=== PATIENT | female | born 1935 | race Caucasian/White ===

== ENCOUNTER → 2024-01-29 11:45 | Outpatient (REF) | payer OTHER, SELFPAY ==
[2024-01-29 14:08] LABS: ALT (SGPT) 13 U/L (0-35); AST (SGOT) 24 U/L (14-36); Alkaline Phosphatase 71 U/L (38-126); Blood Urea Nitrogen 13 mg/dl (7-17); Calcium 9.1 mg/dl (8.4-10.2); Carbon Dioxide 27 mmol/L (22-30); Chloride 105 mmol/L (98-107); Glucose 108 mg/dl (70-99); Sodium 140 mmol/L (135-145); Total Bilirubin 0.6 mg/dl (0.2-1.3); eGFR > 60.00
[2024-01-29 14:14] LABS: Potassium 4.8 mmol/L (3.5-5.1)
== END ==
LOC: OLABN 11:45
PROVIDERS: ATTENDING PHYSICIAN Student in an Organized Health Care Education/Training Program
DX: R52 Pain, unspecified (principal); I25.119 Atherosclerotic heart disease of native coronary artery with unspecified angina pectoris
CPT/HCPCS: 36415; 80053

== ENCOUNTER → 2024-05-27 07:37 | Outpatient (REF) | payer OTHER, SELFPAY | LOC: EMG 07:37 | PROVIDERS: ATTENDING PHYSICIAN Student in an Organized Health Care Education/Training Program | DX: G61.81 Chronic inflammatory demyelinating polyneuritis (principal); G60.3 Idiopathic progressive neuropathy; R20.0 Anesthesia of skin | CPT/HCPCS: 95886; 95913 ==

== ENCOUNTER → 2024-06-12 09:03 | Outpatient (REF) | payer OTHER, SELFPAY ==
[2024-06-12 12:53] LABS: ALT (SGPT) < 10 U/L (0-35); AST (SGOT) 20 U/L (14-36); Albumin 3.3 g/dl (3.5-5.0); Alkaline Phosphatase 73 U/L (38-126); Blood Urea Nitrogen 11 mg/dl (7-17); Calcium 9.5 mg/dl (8.4-10.2); Carbon Dioxide 28 mmol/L (22-30); Chloride 109 mmol/L (98-107); Glucose 107 mg/dl (70-99); Potassium 3.9 mmol/L (3.5-5.1); Sodium 141 mmol/L (135-145); Total Bilirubin 0.6 mg/dl (0.2-1.3); eGFR > 60.00
[2024-06-12 13:59] LABS: Folate 13.2 ng/ml (2.76-20)
[2024-06-12 15:00] LABS: Vitamin B12 260 pg/ml (239-931)
[2024-06-14 01:55] LABS: ANA, IgG Reflex to HEp-2 None Detected (None Detected)
[2024-06-14 11:27] LABS: Glomerular Base Membrane Ab 0 AU/mL (0-19)
[2024-06-14 12:06] LABS: Purkinje Cell/Neuronal Nuc IgG None Detected (None Detected)
[2024-06-14 17:52] LABS: SSA 52 (Ro)(ENA) Ab, IgG 5 AU/mL (0-40); SSA 60 (Ro)(ENA) Ab, IgG 0 AU/mL (0-40); SSB (La)(ENA) Ab, IgG 0 AU/mL (0-40)
== END ==
LOC: OLABN 09:03
PROVIDERS: ATTENDING PHYSICIAN Student in an Organized Health Care Education/Training Program; OTHER PHYSICIAN Specialist
DX: G60.3 Idiopathic progressive neuropathy (principal); E11.42 Type 2 diabetes mellitus with diabetic polyneuropathy; D51.8 Other vitamin B12 deficiency anemias; A69.20 Lyme disease, unspecified
CPT/HCPCS: 80053; 82565; 82607; 82746; 82784; 83516; 83521; 84155; 84165; 86038; 86235; 86255; 86334; 86430; 86618

== ENCOUNTER → 2025-03-02 10:01 | Outpatient (REF) | payer OTHER, SELFPAY ==
[2025-03-02 11:52] LABS: HDL Cholesterol 44 mg/dl; LDL Cholesterol, Calculated 30 mg/dl; Total Cholesterol 86 mg/dl (50-199); Triglyceride 60 mg/dl (10-149); Very Low Density Lipoprotein 12 mg/dl (0-30)
== END ==
LOC: OLABN 10:01
PROVIDERS: ATTENDING PHYSICIAN Student in an Organized Health Care Education/Training Program
DX: E78.5 Hyperlipidemia, unspecified (principal)
CPT/HCPCS: 36415; 80061